=== PATIENT | female | born 1965 | race Caucasian/White ===

== ENCOUNTER 2017-11-26 11:30 | Emergency (ER) | payer MEDICAID ==
[2017-11-26] MEDS ORDERED: HYDROCODONE/APAP 5/325MG TABLET PO ONE (11:54)
--- NOTE | 2017-11-26 12:04 | Emergency Department Record ---
History of Present Illness - General Chief Complaint: Fall Injury Stated Complaint: FALL/KNEE PAIN Time Seen by Provider: 11/26/17 11:45 Source: Patient Mode of Arrival: Ambulatory Limitations: No limitations - History of Present Illness Initial Comments: The patient is here due to R knee pain. She slipped and fell on the R knee 2 days ago and now is having progressively increasing pain. The pain does radiate to the thigh and calf. She denies any other injury and is able to walk on it with a limp. Complaint: Fall Onset/Timin -: Days(s) When Fall Occurred: # Days [employer] Fall Witnessed: No Place Fall Occurred: Home Loss of Consciousness: None Prolonged Down Time?: Yes Symptoms Prior to Fall: None Severity scale (1-10): 4 Quality: Aching Context: Tripped/slipped Associated Symptoms: Denies - [place] Coma Scale Eye Response: (4) Open spontaneously Motor Response: (6) Obeys commands Verbal Response: (5) Oriented [place] Total: 15 - Related Data Home Medications Medication Instructions Recorded Confirmed Last Taken Furosemide [Lasix] 40 mg PO DAILY 11/26/17 11/26/17 Unknown Previous Rx's Medication Instructions Recorded Hydrocodone/Acetaminophen [[place] 1 - 2 each PO .EVERY 4-6 HRS PRN 11/26/17 5-325 Tablet] #20 tablet Allergies Allergy/AdvReac Type Severity Reaction Status Date / Time No Known Drug Allergies Allergy Unverified 08/12/17 09:58 Travel Screening - Travel/Exposure Within Last 30 Days Have you traveled within the last 30 days?: No Review of Systems Constitutional: Denies: Chills, Fever Eyes: Denies: Eye discharge ENT: Denies: Congestion Past Medical History - SOCIAL HISTORY Smoking Status: Current every day smoker Alcohol Use: None Drug Use: None - RESPIRATORY Hx Respiratory Disorders: Yes Hx Dyspnea: Yes (only with high humidity/heat) Hx Pneumonia: Yes (2 yrs ago) Hx Sleep Apnea: Yes Hx of CPAP: Yes - CARDIOVASCULAR Hx Cardio Disorders: Yes Hx Abnormal EKG: Yes (A fib) Hx CHF: Yes (start of it) Hx Edema: Yes (intermittent bilat) Hx Hypertension: Yes (meds good control) Hx Irregular Heartbeat: Yes Comment:: hyperlipidemia - NEURO Hx Neuro Disorders: Yes Hx Neuropathy: Yes (bottom of feet) Hx Weakness: Yes (all over) - GI Hx GI Disorders: No - Hx Genitourinary Disorders: Yes Comment:: 3 months "super heavy periods from xarelto"- said to stop xarelto. - ENDOCRINE Hx Endocrine Disorders: Yes Hx Diabetes: Yes (runs about 130) Hx Thyroid Disease: No (had sx) - MUSCULOSKELETAL Hx Musculoskeletal Disorders: No - PSYCH Hx Psych Problems: No - HEMATOLOGY/ONCOLOGY Hx Hematology/Oncology Disorders: Yes Comment:: no longer on xarelto per Dr Carri pérez Family Medical History Any Significant Family History?: Yes *Cancer Comment: uncle throat CA Hx Dementia: Mother Hx Depression: Mother Hx Diabetes: Father *Diabetes Comment: insulin Hx Heart Disease: Father, Brother/Sister *Heart Comment: a fib Hx HTN: Father Hx Stroke: Father Physical Exam - General General Appearance: Alert, Oriented x3, Cooperative, No acute distress - Head Head exam: Normal inspection - Eye Eye exam: Normal appearance, PERRL - ENT Ear exam: negative: External canal tenderness Nasal Exam: negative: Discharge, Sinus tenderness Throat exam: negative: Tonsillar erythema, Tonsillar exudate - Neck Neck exam: negative: Tenderness - Respiratory Respiratory exam: Normal lung sounds bilaterally. negative: Respiratory distress - Cardiovascular Cardiovascular Exam: Regular rate, Normal rhythm, Normal heart sounds - GI/Abdominal GI/Abdominal exam: Soft, Normal bowel sounds. negative: Tenderness - Extremities Extremities exam: Normal capillary refill, Tenderness (There is bruising, swelling, and tenderness to the anterior knee diffusely.). negative: Normal inspection, Full ROM - Neurological Neurological exam: Alert, Oriented X3. negative: Motor sensory deficit - Psychiatric Psychiatric exam: Normal affect, Normal mood - Skin Skin exam: Dry, Intact, Warm Course Vital Signs 11/26/17 11:46 Temperature 97.9 F Pulse Rate [ 69 Pulse Ox Probe] Respiratory 16 Rate Blood Pressure 135/90 [Left Arm] Pulse Ox 96 - Reevaluation(s) Reevaluation #1: I did discuss the xrays and plan with the patient. She is to use her home crutches and be off work for 3 days. She is to see her PCP next week for recheck if not better. 11/26/17 12:52 Medical Decision Making - Data Complexity MDM Data: X-Ray Ordered and/or Reviewed - Radiology Data Radiology results: Report reviewed (R knee: No acute traumatic changes.) Disposition Disposition: Discharge Clinical Impression: Contusion of knee Qualifiers: Encounter type: initial encounter Laterality: right Qualified Code(s): S80.01XA - Contusion of right knee, initial encounter Disposition: Home, Self-Care Condition: (2) Stable Instructions: Knee Pain (ED) Additional Instructions: The patient is to keep her zohra wrap on the R knee for 3-4 days. She is to use her home crutches and ice and elevate the knee. The patient is to take Sarver for pain and see her PCP next week if not better. Prescriptions: Hydrocodone/Acetaminophen [[place] 5-325 Tablet] 1 - 2 each PO .EVERY 4-6 HRS PRN #20 tablet PRN Reason: Pain Forms: Patient Portal Access Time of Disposition: 12:54 Quality - Quality Measures Quality Measures: N/A - Blood Pressure Screening View Details: Yes Does Patient Have Any of the Following: No Blood Pressure Classification: Hypertensive Reading Systolic Measurement: 135 Diastolic Measurement: 90 Screening for High Blood Pressure: < Pre-Hypertensive BP, F/U Documented > [ [id number]] Pre-Hypertensive Follow-up Interventions: Referral to alternative/primary care provider.
--- NOTE | 2017-11-27 08:50 | RADIOLOGY REPORT ---
EXAM: RIGHT KNEE HISTORY: PATIENT FELL ON RIGHT KNEE THREE DAYS AGO WITH PAIN. TECHNIQUE: Three views of the right knee were obtained. Comparison: None. Encounter: Initial. FINDINGS: There is relatively advanced degenerative arthritis at the patellofemoral articulation particularly involving the lateral compartment with degenerative arthritis also seen at both the medial and lateral compartments, more so medially. No definite acute fracture, dislocation, or joint effusion seen. There is some vascular calcification present. IMPRESSION: 1. DEGENERATIVE ARTHRITIS. 2. VASCULAR CALCIFICATION. 3. NO DEFINITE FRACTURE IDENTIFIED INVOLVING THE RIGHT KNEE. JOB NUMBER: [id number] MTDD
== END 2017-11-26 13:06 | disposition home or self-care (01) ==
LOC: ER 11:30
DX: S80.01XA Contusion of right knee, initial encounter (principal); W01.0XXA Fall on same level from slipping, tripping and stumbling without subsequent striking against object, initial encounter; Y92.009 Unspecified place in unspecified non-institutional (private) residence as the place of occurrence of the external cause; I10 Essential (primary) hypertension; F17.210 Nicotine dependence, cigarettes, uncomplicated
CPT/HCPCS: 99283

== ENCOUNTER 2019-08-18 13:21 | Observation (INO) | payer MEDICAID ==
--- NOTE | 2019-08-18 13:33 | Emergency Department Record ---
History of Present Illness - General Chief Complaint: Fall Injury Stated Complaint: FALL INJURY Time Seen by Provider: 08/18/19 13:22 Source: Patient Mode of Arrival: Ambulatory Limitations: No limitations - History of Present Illness Initial Comments: The patient is here due to falling down 8 steps at home onto a concrete landing. She had no LOC but did hit the front of her head on the cement. Presently the patient has a mild BUNCH and also L hand pain. She denies any neck pain, CP, SOB, back pain, hip pain or visual changes. The patient is on Coumadin due to Afib. Her Td is UTD. Complaint: Fall Onset/Timin -: Minutes(s) Fall From: Down stairs (#) (8) - Related Data Home Medications Medication Instructions Recorded Confirmed Last Taken Furosemide 40 mg PO DAILY 08/18/19 08/18/19 Unknown Allergies Allergy/AdvReac Type Severity Reaction Status Date / Time No Known Drug Allergies Allergy Unverified 03/30/19 08:01 Review of Systems Constitutional: Denies: Chills, Fever Eyes: Denies: Eye discharge ENT: Denies: Congestion Respiratory: Denies: Cough Endocrine: Denies: Fatigue Gastrointestinal: Denies: Nausea Genitourinary: Denies: Dysuria Musculoskeletal: Denies: Arthralgia Skin: Reports: Bruising Past Medical History - SOCIAL HISTORY Smoking Status: Current every day smoker Drug Use: None - RESPIRATORY Hx Respiratory Disorders: Yes Hx Dyspnea: Yes (only with high humidity/heat) Hx Pneumonia: Yes (2 yrs ago) Hx Sleep Apnea: Yes Hx of CPAP: Yes - CARDIOVASCULAR Hx Cardio Disorders: Yes Hx Abnormal EKG: Yes (A fib) Hx CHF: Yes (start of it) Hx Edema: Yes (intermittent bilat) Hx Hypertension: Yes (meds good control) Hx Irregular Heartbeat: Yes Comment:: hyperlipidemia - NEURO Hx Neuro Disorders: Yes Hx Neuropathy: Yes (bottom of feet) Hx Weakness: Yes (all over) - GI Hx GI Disorders: No - Hx Genitourinary Disorders: Yes Comment:: 3 months "super heavy periods from xarelto"- said to stop xarelto. - ENDOCRINE Hx Endocrine Disorders: Yes Hx Diabetes: Yes (runs about 130) Hx Thyroid Disease: No (had sx) - MUSCULOSKELETAL Hx Musculoskeletal Disorders: No - PSYCH Hx Psych Problems: No - HEMATOLOGY/ONCOLOGY Hx Hematology/Oncology Disorders: Yes Comment:: no longer on xarelto per Dr Carri pérez Family Medical History *Cancer Comment: uncle throat CA Hx Dementia: Mother Hx Depression: Mother Hx Diabetes: Father *Diabetes Comment: insulin Hx Heart Disease: Father, Brother/Sister *Heart Comment: a fib Hx HTN: Father Hx Stroke: Father Physical Exam - General General Appearance: Alert, Oriented x3, Cooperative, No acute distress - Head Head exam: Normocephalic. negative: Atraumatic, Normal inspection (There is a mild to mod contusion to the R frontal area.) Image of Face/Head: 1 - Area of tenderness and contusion. - Eye Eye exam: Normal appearance, PERRL - ENT Throat exam: Normal inspection. negative: Tonsillar erythema, Tonsillar exudate - Neck Neck exam: Normal inspection, Full ROM. negative: Tenderness (There is no posterior spine tenderness.) - Respiratory Respiratory exam: Normal lung sounds bilaterally. negative: Chest wall tenderness, Respiratory distress - Cardiovascular Cardiovascular Exam: Regular rate, Normal rhythm, Normal heart sounds - GI/Abdominal GI/Abdominal exam: Soft, Normal bowel sounds. negative: Tenderness - Extremities Extremities exam: Tenderness (There is L 5th finger tenderness.), Other (There is tenderness and abrasions to the dorsal L forearm.). negative: Normal insp ection - Back Back exam: Reports: Normal inspection. Denies: Vertebral tenderness - Neurological Neurological exam: Alert. negative: Motor sensory deficit Course - Reevaluation(s) Reevaluation #1: The patient is doing better at this time. She denies any significant head or neck pain. The L 5th finger PIP joint was very minimally subluxed and was easily reduced with minimal pressure. I did discuss the forehead hematoma and did recommend a short stay admission which she did agree to. 08/18/19 14:40 Reevaluation #2: The patient is doing very well at this time with mild head pain and no neck pain, confusion, nausea, or vomiting. I did discuss the case with the Trauma doctor at [facility] and she did recommend a short stay admission for a repeat head scan in 12-24 hours and also reverse the Coumadin down to near normal. Due to the patient being so stable I do believe she can stay here at [facility]. We will give her a 1000 unit dose of Kcentra and will admit her overnight to the hospital for repeat monitoring and repeat scanning. I did discuss the case with Ann (NUTRITION REPRESENTATIVE) and she does accept the admission. 08/18/19 15:04 Reevaluation #3: The patient is doing very well at this time. She denies any BUNCH, neck pain, CP, SOB, AP or back pain. She is ambulating normally and stable for admission. 08/18/19 15:09 Medical Decision Making - Data Complexity MDM Data: Labs Ordered and/or Reviewed, X-Ray Ordered and/or Reviewed, EKG Ordered and/or Reviewed - Lab Data Result diagrams: 08/18/19 13:30 08/18/19 13:30 - EKG Data -: EKG Interpreted by Me EKG: No Acute Changes - Radiology Data Radiology results: Report reviewed (Head CT: Neg for acute changes. Cervical Cpine CT: Neg for acute fx of dislocation. L forearm: Neg. L hand: ) Disposition Disposition: Admit Clinical Impression: Head injury due to trauma Qualifiers: Encounter type: initial encounter Qualified Code(s): S09.90XA - Unspecified injury of head, initial encounter Disposition: Still a Patient at [facility] Decision to Admit: Admit from ER Decision to Admit Date: 08/18/19 Decision to Admit Time: 15:10 Accepting Physician: Paulo Time Discussed w/Accepting Physician: 15:10 Condition: (2) Stable Forms: Patient Portal Access Time of Disposition: 15:10 Quality - Quality Measures Quality Measures: Blunt Head Trauma (>2yr) - Blunt Head Trauma - Adult Quality Measure: Measure #415: Utilization of CT for Minor Blunt Head Trauma ICD10 Codes Entered: Yes View Details: Yes Was CT ordered: Yes Does Patient Have Any of the Following: Taking Antiplatelet Med [place] Score: Please complete [place] Coma Scale above Utilization of CT for Minor Blunt Head Trauma: Patient Excluded [G9531] - Blood Pressure Screening View Details: Yes Does Patient Have Any of the Following: No Blood Pressure Classification: Normal BP Reading Systolic Measurement: 106 Diastolic Measurement: 68 Screening for High Blood Pressure: < Normal BP, F/U Not Required > [G8783]
[2019-08-18] MEDS ORDERED: ACETAMINOPHEN 1,000 MG/100 ML BTL IVPB ONE (13:34)
[2019-08-18 13:39] LABS: BASO % 0.4 % (0-6); EOS % 1.2 % (0-6); GRAN % 69.1 % (47-80); HEMATOCRIT 42.8 % (35.0-47.0); HEMOGLOBIN 13.7 gm/dl (11.6-16.0); LYMPH % 22.5 % (16-45); MEAN CELL VOLUME 89.5 fl (81-97); MEAN CORPUSCULAR HEMOGLOBIN 28.7 pg (27-33); MEAN PLATELET VOLUME 11.8 fl (7.4-10.4); MONO % 6.8 % (0-9); PLATELET COUNT 251 K/uL (130-400); RED BLOOD COUNT 4.78 M/uL (3.80-5.40); RED CELL DISTRIBUTION WIDTH 14.9 % (11.5-14.5); WHITE BLOOD COUNT W/O DIFF 9.1 K/uL (4.2-12.2)
[2019-08-18 13:51] LABS: INR 1.8; PROTHROMBIN TIME (PATIENT) 18.3 SECONDS (9.5-12.1)
[2019-08-18 13:52] LABS: BLOOD UREA NITROGEN 12 mg/dL (6-20); CREATININE 0.8 mg/dL (0.5-0.9); EST GLOMERULAR FILTRATION RATE > 60 mL/min
[2019-08-18 13:55] LABS: GLUCOSE,RANDOM 120 mg/dL (74-109)
[2019-08-18] MEDS ORDERED: KCENTRA (PCC) 1,000 UNIT KIT IV ONE (15:03)
[2019-08-18] MEDS ORDERED: PROTHROMBIN COMPLEX CONCENTRATE 1000 UNIT IV ONE (15:45)
[2019-08-18] MEDS ORDERED: HYDROCODONE/APAP 5/325MG TABLET PO PRN (15:56)
[2019-08-18] MEDS ORDERED: ACETAMINOPHEN 325 MG TAB PO PRN (15:56)
[2019-08-18] MEDS ORDERED: METFORMIN 500 MG TABLET PO SCH (17:30)
[2019-08-18] MEDS ORDERED: NICOTINE 21 MG/24 HOUR PATCH TD SCH (19:00)
[2019-08-18] MEDS ORDERED: LEVEMIR FLEXTOUCH 100 UNIT/ML INSULIN PEN SQ SCH (22:00)
[2019-08-18] MEDS ORDERED: SOTALOL HCL 80 MG TABLET PO SCH (22:00)
[2019-08-19 06:19] LABS: BASO % 0.2 % (0-6); EOS % 1.2 % (0-6); GRAN % 65.8 % (47-80); HEMATOCRIT 40.8 % (35.0-47.0); HEMOGLOBIN 13.1 gm/dl (11.6-16.0); LYMPH % 26.1 % (16-45); MEAN CELL VOLUME 89.7 fl (81-97); MEAN CORPUSCULAR HEMOGLOBIN 28.8 pg (27-33); MEAN CORPUSCULAR HGB CONC 32.1 g/dl (32-36); MEAN PLATELET VOLUME 11.6 fl (7.4-10.4); MONO % 6.7 % (0-9); PLATELET COUNT 230 K/uL (130-400); RED BLOOD COUNT 4.55 M/uL (3.80-5.40); RED CELL DISTRIBUTION WIDTH 14.9 % (11.5-14.5); WHITE BLOOD COUNT W/O DIFF 8.2 K/uL (4.2-12.2)
[2019-08-19 06:29] LABS: INR 1.7; PROTHROMBIN TIME (PATIENT) 17.5 SECONDS (9.5-12.1)
--- NOTE | 2019-08-19 06:49 | History & Physical ---
History of Present Illness - Date of Service Date of Service for History & Physical: 08/19/19 - History of Present Illness Admitting Diagnosis: 1. Acute Head Trauma on Coumadin History of Present Illness: Padmini Spears is a 53 y.o. F who presented to the [facility] ED on 08/18/19 after a fall down 8 steps and onto a concrete landing. Denied having any loss of LOC but did hit her head on the cement. Reported mild BUNCH and left hand pain in the ED. D/t Coumadin use for hx of Afib, pt admitted for OBV and for repeat head CT [address] KCentra was given in an attempt to reverse Coumadin during the post fall period. PMHx: HTN, high cholesterol, hypothyroidism, Afib, Obesity, DMII, smoker PCP: Elizabeth Medel NP ED Course -Vitals: T 98.3, HR 58, BP 106/68, RR 20, SpO2 98% on RA -Head CT: Negative for acute changes -Cervical CT: Negative for acute changes -Left hand xray: negative for fx, soft tissue swelling in 3rd and 4th MCP joint -Left forearm xray: negative for acute changes -CBC and CMP WNL, INR 1.8 -1000unit dose of Kcentra given -Left 5th finger PIP joint minimal subluxation, reduced by ER physician 08/19/19 0645 Vitals: T 98.4, HR 54, BP 122/80, RR 16, SpO2 94% on RA Pt sitting up at edge of bed. A&Ox3. Had 2nd head CT at 0400 and reported that she was ready to go as her boyfriend had her coffee and cigarettes waiting for her. Reported mild to moderate pain in the right side of her head and in her left hand. Denied neck pain, confusion, nausea or vomiting. Travel Screening - Travel/Exposure Within Last 30 Days Have you traveled within the last 30 days?: No - Travel/Exposure Within Last Year Have you traveled outside the [place] in the last year?: No - Additonal Travel Details Have you been exposed to anyone with a communicable illness?: No - Travel Symptoms Symptom Screening: None Review of Systems Reviewed: No additional complaints except as noted below Constitutional: Denies: Chills, Fever Eyes: Denies: Photophobia, Vision change Respiratory: Denies: Cough Cardiovascular: Denies: Chest pain, Dyspnea on exertion, Palpitations, Syncope Endocrine: Denies: Fatigue Gastrointestinal: Denies: Nausea, Vomiting Genitourinary: Denies: Dysuria Musculoskeletal: Denies: Arthralgia Skin: Reports: Bruising Neurological: Reports: Headache. Denies: Confusion, Numbness, Seizure, Tingling, Tremors, Weakness Hematological/Lymphatic: Reports: Easy bleeding (Coumadin use) Past Medical History - SOCIAL HISTORY Smoking Status: Current every day smoker Alcohol Use: None Drug Use: None - RESPIRATORY Hx Respiratory Disorders: Yes Hx Dyspnea: Yes (only with high humidity/heat) Hx Pneumonia: Yes (2 yrs ago) Hx Sleep Apnea: Yes Hx of CPAP: Yes - CARDIOVASCULAR Hx Cardio Disorders: Yes Hx Abnormal EKG: Yes (A fib) Hx CHF: Yes (start of it) Hx Edema: Yes (intermittent bilat) Hx Hypertension: Yes (meds good control) Hx Irregular Heartbeat: Yes Comment:: hyperlipidemia - NEURO Hx Neuro Disorders: Yes Hx Neuropathy: Yes (bottom of feet) Hx Weakness: Yes (all over) - GI Hx GI Disorders: No - Hx Genitourinary Disorders: Yes Comment:: 3 months "super heavy periods from xarelto"- said to stop xarelto. - ENDOCRINE Hx Endocrine Disorders: Yes Hx Diabetes: Yes (runs about 130) Hx Thyroid Disease: No (had sx) - MUSCULOSKELETAL Hx Musculoskeletal Disorders: Yes Hx Arthritis: Yes - PSYCH Hx Psych Problems: No - HEMATOLOGY/ONCOLOGY Hx Hematology/Oncology Disorders: Yes Comment:: no longer on xarelto per Dr Carri pérez Family Medical History Any Significant Family History?: Yes *Cancer Comment: uncle throat CA Hx Dementia: Mother Hx Depression: Mother Hx Diabetes: Father *Diabetes Comment: insulin Hx Heart Disease: Father, Brother/Sister *Heart Comment: a fib Hx HTN: Father Hx Stroke: Father H&P Meds/Allergies - Allergies Allergies: Allergies Allergy/AdvReac Type Severity Reaction Status Date / Time No Known Drug Allergies Allergy Unverified 03/30/19 08:01 - Home Medications Home Medications Medication Instructions Recorded Confirmed Last Taken Furosemide 40 mg PO DAILY 08/18/19 08/18/19 Unknown Previous Rx's Medication Instructions Recorded Acetaminophen [Tylenol 325Mg] 650 mg PO Q6H PRN tablet 08/19/19 Hydrocodone/APAP 5/325Mg [[place] 1 each PO Q6H PRN #5 tab 08/19/19 5Mg/325Mg] - Active Medications Active Medications: Current Medications Acetaminophen (Tylenol 325mg) 650 mg PO Q6H PRN PRN Reason: PAIN - MILD(1-4)/FEVER Hydrocodone Bitart/Acetaminophen ([place] 5mg/325mg) 1 each PO Q4H PRN PRN Reason: PAIN - MOD TO SEVERE (5-10) Last Admin: 08/19/19 02:52 Dose: 1 each Documented by: Atorvastatin Calcium (Lipitor) 20 mg PO DAILY [facility] Enalapril Maleate (Vasotec) 20 mg PO DAILY [facility] Furosemide (Lasix) 40 mg PO DAILY [facility] Insulin Detemir (Levemir Flextouch) 20 unit SQ BID [facility] Last Admin: 08/18/19 21:27 Dose: 20 unit Documented by: Metformin HCl (Glucophage Ir) 1,000 mg PO BIDWM [facility] Last Admin: 08/18/19 19:02 Dose: 1,000 mg Documented by: Nicotine (Nicotine 21mg) 1 patch TD Q24H [facility] Last Admin: 08/18/19 19:02 Dose: 1 patch Documented by: Sotalol HCl (Betapace) 80 mg PO BID [facility] Last Admin: 08/18/19 21:27 Dose: 80 mg Documented by: Verapamil HCl (Calan Sr) 240 mg PO DAILY [facility] Physical Exam - Vital Signs Vital Signs: Vital Signs - Last 24 Hrs Temp Pulse Pulse Resp BP BP Pulse Ox 08/19/19 02:50 98.4 F 54 L 16 133/79 98 08/18/19 21:30 98.1 F 56 L 18 126/79 96 08/18/19 16:36 55 L 20 08/18/19 16:12 54 L 20 120/70 97 08/18/19 16:00 98.5 F 55 L 16 122/79 93 L 08/18/19 13:29 98.3 F 58 L 20 106/68 98 - General General Appearance: Alert, Oriented x3, Cooperative, No acute distress Limitations: No limitations - Head Head exam: Normocephalic. negative: Atraumatic, Normal inspection Head exam detail: Contusion (right upper eye/forehead), Hematoma (right upper eye/forehead) - Eye Eye exam: Normal appearance, PERRL - ENT ENT exam: Normal exam Throat exam: Normal inspection. negative: Tonsillar erythema, Tonsillar exudate - Neck Neck exam: Normal inspection, Full ROM. negative: Tenderness (There is no posterior spine tenderness.) - Respiratory Respiratory exam: Normal lung sounds bilaterally. negative: Chest wall tenderness, Respiratory distress - Cardiovascular Cardiovascular Exam: Regular rate, Normal rhythm, Normal heart sounds - GI/Abdominal GI/Abdominal exam: Soft, Normal bowel sounds. negative: Tenderness - Extremities Extremities exam: Tenderness (There is L 5th finger tenderness.), Other (There is tenderness and abrasions to the dorsal L forearm.). negative: Normal inspection - Back Back exam: Reports: Normal inspection. Denies: Vertebral tenderness - Neurological Neurological exam: Alert, CN II-XII intact, Oriented X3. negative: Motor sensory deficit - Psychiatric Psychiatric exam: Normal affect, Normal mood - Skin Skin exam: Abrasion (left thigh d/t fall) Results - Labs Result Diagrams: 08/19/19 06:10 08/18/19 13:30 Labs Last 24 Hours: Laboratory Results - last 24 hr 08/18/19 08/18/19 08/18/19 13:30 13:30 13:30 WBC 9.1 RBC 4.78 Hgb 13.7 Hct 42.8 MCV 89.5 MCH 28.7 MCHC 32.0 RDW 14.9 H Plt Count 251 MPV 11.8 H Gran % 69.1 Lymphocytes % 22.5 Monocytes % 6.8 Eosinophils % 1.2 Basophils % 0.4 Absolute Neutrophils 6.30 PT 18.3 H INR 1.8 Sodium 138 Potassium 4.2 Chloride 99 Carbon Dioxide 26.0 Anion Gap 13.0 BUN 12 Creatinine 0.8 Estimated GFR > 60 Random Glucose 120 H Calcium 9.2 08/19/19 08/19/19 06:10 06:10 WBC 8.2 RBC 4.55 Hgb 13.1 Hct 40.8 MCV 89.7 MCH 28.8 MCHC 32.1 RDW 14.9 H Plt Count 230 MPV 11.6 H Gran % 65.8 Lymphocytes % 26.1 Monocytes % 6.7 Eosinophils % 1.2 Basophils % 0.2 Absolute Neutrophils 5.40 PT 17.5 H INR 1.7 Sodium Potassium Chloride Carbon Dioxide Anion Gap BUN Creatinine Estimated GFR Random Glucose Calcium - Imaging and Cardiology CT scan - head Status: Report reviewed VTE H&P Assessment - Risk for VTE Risk for VTE: Yes Risk Level: High Risk Assessment Date: 08/19/19 Risk Assessment Time: 06:45 VTE Orders Placed or Will Be Placed: No VTE Reason for No Prophylaxis: Contraindicated (usually on Coumadin, reversed with KCentra d/t fall) Plan - Detailed Diagnosis and Plan (1) Head injury due to trauma Status: Acute Qualifiers: Encounter type: initial encounter Qualified Code(s): S09.90XA - Unspecified injury of head, initial encounter Base Code: S09.90XA - UNSPECIFIED INJURY OF HEAD, INITIAL ENCOUNTER Comment: 08/19/19 -Fall down 8 steps, landing on concrete landing -Hit head, no LOC. -On Coumadin for Afib -Head CT at approximately 1500: No acute bleed -Reversed with KCentra in ED -Repeat Head CT at 0400: No acute bleed -Hgb/Hct stable (2) Full code status Status: Acute Base Code: Z78.9 - OTHER SPECIFIED HEALTH STATUS Comment: 08/19/19 -Full code this admission (3) DVT prophylaxis Status: Acute Base Code: Z29.9 - ENCOUNTER FOR PROPHYLACTIC MEASURES, UNSPECIFIED Comment: 08/19/19 -Last dose Coumadin on 08/17/19 -INR 1.8 on 08/17/19 -KCentra given to reverse Coumadin d/t fall -Holding Coumadin -Nursing to encourage ambulation
--- NOTE | 2019-08-19 06:54 | Discharge Summary ---
Providers Discharge Summary Date: 08/19/19 Date of admission: 08/18/19 15:45 Attending physician: DARYN DON Primary care physician: Elizabeth Medel N.P. Physical Exam - Vital Signs Vital Signs: Vital Signs - Last 24 Hrs Temp Pulse Pulse Resp BP BP Pulse Ox 08/19/19 02:50 98.4 F 54 L 16 133/79 98 08/18/19 21:30 98.1 F 56 L 18 126/79 96 08/18/19 16:36 55 L 20 08/18/19 16:12 54 L 20 120/70 97 08/18/19 16:00 98.5 F 55 L 16 122/79 93 L 08/18/19 13:29 98.3 F 58 L 20 106/68 98 - General General Appearance: Alert, Oriented x3, Cooperative, No acute distress Limitations: No limitations - Head Head exam: Normocephalic. negative: Atraumatic, Normal inspection (There is a mild to mod contusion to the R frontal area.) - Eye Eye exam: Normal appearance, PERRL - ENT Throat exam: Normal inspection. negative: Tonsillar erythema, Tonsillar exudate - Neck Neck exam: Normal inspection, Full ROM. negative: Tenderness (There is no posterior spine tenderness.) - Respiratory Respiratory exam: Normal lung sounds bilaterally. negative: Chest wall tenderness, Respiratory distress - Cardiovascular Cardiovascular Exam: Regular rate, Normal rhythm, Normal heart sounds - GI/Abdominal GI/Abdominal exam: Soft, Normal bowel sounds. negative: Tenderness - Extremities Extremities exam: Tenderness (There is L 5th finger tenderness.), Other (There is tenderness and abrasions to the dorsal L forearm.). negative: Normal inspection - Back Back exam: Reports: Normal inspection. Denies: Vertebral tenderness - Neurological Neurological exam: Alert. negative: Motor sensory deficit Hospitalization - Hospitalization Admission Diagnosis: 1. Acute Head Trauma on Coumadin - Problem List/Discharge Diagnosis (1) Head injury due to trauma Status: Acute Discharge Diagnosis: Encounter type: initial encounter Qualified Code(s): S09.90XA - Unspecified injury of head, initial encounter Base Code: S09.90XA - UNSPECIFIED INJURY OF HEAD, INITIAL ENCOUNTER Comment: 08/19/19 -Fall down 8 steps, landing on concrete landing -Hit head, no LOC. -On Coumadin for Afib -Head CT at approximately 1500: No acute bleed -Reversed with KCentra in ED -Repeat Head CT at 0400: No acute bleed -Hgb/Hct stable, INR 1.7 -Restart Coumadin tonight -Instructed to contact Dr. Falcon office (manages Coumadin) for further instruction on dose of Coumadin -Tylenol for mild-moderate pain -#5 [place] tablets given with instructions to split in half for severe pain. Pt unable to take Motrin d/t Coumadin use. (2) DVT prophylaxis Status: Acute Base Code: Z29.9 - ENCOUNTER FOR PROPHYLACTIC MEASURES, UNSPECIFIED Comment: 08/19/19 -Last dose Coumadin on 08/17/19 -INR 1.8 on 08/17/19 -KCentra given to reverse Coumadin d/t fall -Coumadin held while hospitalized -Nursing to encourage ambulation (3) Full code status Status: Acute Base Code: Z78.9 - OTHER SPECIFIED HEALTH STATUS Comment: 08/19/19 -Full code this admission - Hospitalization Course Disposition: Home, Self-Care Hospital Course: Padmini Spears is a 53 y.o. F who presented to the [facility] ED on 08/18/19 after a fall down 8 steps and onto a concrete landing. Denied having any loss of LOC but did hit her head on the cement. Reported mild BUNCH and left hand pain in the ED. D/t Coumadin use for hx of Afib, pt admitted for OBV and for repeat head CT [address] KCentra was given in an attempt to reverse Coumadin during the post fall period. PMHx: HTN, high cholesterol, hypothyroidism, Afib, Obesity, DMII, smoker PCP: Elizabeth Medel NP ED Course -Vitals: T 98.3, HR 58, BP 106/68, RR 20, SpO2 98% on RA -Head CT: Negative for acute changes -Cervical CT: Negative for acute changes -Left hand xray: negative for fx, soft tissue swelling in 3rd and 4th MCP joint -Left forearm xray: negative for acute changes -CBC and CMP WNL, INR 1.8 -1000unit dose of Kcentra given -Left 5th finger PIP joint minimal subluxation, reduced by ER physician 08/19/19 0645 Vitals: T 98.4, HR 54, BP 122/80, RR 16, SpO2 94% on RA Pt sitting up at edge of bed. A&Ox3. Had 2nd head CT at 0400 and reported that she was ready to go as her boyfriend had her coffee and cigarettes waiting for her. Reported mild to moderate pain in the right side of her head and in her left hand. Denied neck pain, confusion, nausea or vomiting. Reported that Dr. Falcon's office manages Coumadin. Procedures: Imaging and X-Rays 08/18/19 13:25 CERVICAL SPINE WO CONTRAST [CT] Stat HEAD WO CONTRAST [CT] Stat 08/18/19 13:26 HAND, LEFT 3 VIEWS [RAD] Stat 08/18/19 13:29 FOREARM, LEFT [RAD] Stat 08/19/19 04:00 HEAD WO CONTRAST [CT] Stat Cardiology Procedures 08/18/19 13:27 EKG NOW Abnormal Labs: Abnormal Lab Results 08/18/19 08/18/19 08/18/19 Range/Units 13:30 13:30 13:30 RDW 14.9 H (11.5-14.5) % MPV 11.8 H (7.4-10.4) fl PT 18.3 H (9.5-12.1) SECONDS Random Glucose 120 H (74-109) mg/dL 08/19/19 08/19/19 Range/Units 06:10 06:10 RDW 14.9 H (11.5-14.5) % MPV 11.6 H (7.4-10.4) fl PT 17.5 H (9.5-12.1) SECONDS Random Glucose (74-109) mg/dL Condition at Discharge: (2) Stable Discharge Medications - Discharge Medications Prescriptions: Hydrocodone/APAP 5/325Mg [[place] 5Mg/325Mg] 1 each PO Q6H PRN #5 tab PRN Reason: Pain - Mod To Severe (5-10) Home Medications: Ambulatory Orders Glucosamine/D3/Boswellia Priya [Osteo Bi-Flex Caplet] 1 each PO DAILY tab 11/12/16 [Last Taken Unknown] Warfarin Sodium 7.5 mg PO QD tab 01/08/17 [Last Taken Unknown] Sotalol HCl [Sotalol] 80 mg PO BID tab 03/30/19 [Last Taken Unknown] Furosemide 40 mg PO DAILY 08/18/19 [Last Taken Unknown] Acetaminophen [Tylenol 325Mg] 650 mg PO Q6H PRN tablet 08/19/19 [Last Taken Unknown] Hydrocodone/APAP 5/325Mg [[place] 5Mg/325Mg] 1 each PO Q6H PRN #5 tab 08/19/19 [Last Taken Unknown] Discharge Plan - Discharge Instructions Activity at Discharge: Increase Activity as Tolerated Diet at Discharge: Advance to Usual Diet Instructions: Concussion (DC) Additional Instructions: Activity: Increase Activity as Tolerated Diet: Advance to Usual Diet Consults: [] Follow Up: [] Dressing/Wound Care: (Type) (Change) Additional: [] Please contact Dr. Falcon's office regarding your Coumadin dosing for tonight as you were given a small dose of a reversal medication yesterday as you will need to resume this medication today. Your INR was 1.7 this morning Take 650mg of Tylenol every 4-6 hours as needed for minor to moderate pain Take 0.5 to 1 tablet of [place] every 6 hours NEEDED for severe pain Please note that 1 [place] tablet has 325mg of Acetaminophen and you should not exceed 3,000mg of Acetaminophen in a 24 hour period Follow up with Elizabeth Medel Quality Measures - Quality Measures Quality Measures: Documentation of Current Medications in Medical Record, Screening for High Blood Pressure and F/U Documented - Current Medications Quality Measure: Measure #130: Documentation of Current Medications Documentation of Current Medications: <Current Medications Documented/Reviewed> [G8427] - Blood Pressure Screening Quality Measure: Screening for High Blood Pressure and Follow-Up Documented Does Patient Have Any of the Following: Active Dx of HTN Blood Pressure Classification: Pre-Hypertensive BP Reading Systolic Measurement: 120 Diastolic Measurement: 70 Screening for High Blood Pressure: Patient Exclusion, Hx of HTN [G9744] - Elder Abuse Suspicion Index EASI Reference Information: Jameson RIVERA, Danielle C, Selam D, Phani M.Development and validation of a tool to assist physicians identification of elder abuse: The Elder Abuse Suspicion Index (EASI ). Journal of Elder Abuse and Neglect, 2008; 20 (3): 276-300.
--- NOTE | 2019-08-19 07:22 | CT SCAN REPORT ---
EXAM: CT OF THE BRAIN WITHOUT CONTRAST HISTORY: FALL WITH TRAUMA TO RIGHT FOREHEAD. TECHNIQUE: Routine noncontrast CT examination of the brain was obtained. Comparison: No prior imaging of the head available for comparison. Same day noncontrast CT of the spine. FINDINGS: The examination is mildly limited by increased image noise due to body habitus. The ventricles and subarachnoid spaces are normal in size. No suspicious area of abnormally increased or decreased attenuation is noted throughout the brain substance. No abnormal extraaxial fluid collection is seen. Benign dural calcification is noted to involve the anterior aspect of the falx cerebri and the posterior aspect of the tentorium. No acute skull fracture. There is soft tissue swelling in the right frontal/supraorbital scalp. The visualized paranasal sinuses and mastoid air cells are clear. The orbits to the extent visualized are unremarkable. IMPRESSION: 1. NO CONVINCING CT EVIDENCE OF AN ACUTE INTRACRANIAL ABNORMALITY NOR SKULL FRACTURE THOUGH EVALUATION IS SLIGHTLY LIMITED BY INCREASED IMAGE NOISE DUE TO BODY HABITUS. 2. RIGHT FRONTAL SCALP CONTUSION. JOB NUMBER: [id number] [facility]
--- NOTE | 2019-08-19 07:32 | CT SCAN REPORT ---
EXAM: CT OF THE CERVICAL SPINE WITHOUT CONTRAST HISTORY: FALL WITH TRAUMA TO RIGHT FOREHEAD. TECHNIQUE: Thin collimation helical CT examination of the cervical spine was performed without intravenous contrast. Coronal and sagittal reformatted images are generated and reviewed. Comparison: No prior imaging of the cervical spine available for comparison. Same day noncontrast CT of the head. FINDINGS: Evaluation of the mid to lower cervical spine is mildly limited by increased image noise due to body habitus. There is normal bone mineralization. There is mild reversal of the normal cervical lordosis centered at the C4 level. The vertebral bodies are otherwise normal in alignment and height. No definite acute fracture. No lytic or blastic bone lesion. No prevertebral soft tissue swelling. Multilevel degenerative disk and degenerative end plate changes are noted most pronounced at the C4-C5 through C6-C7 levels where the changes are moderate in degree. These likely combine with congenital canal narrowing to cause mild to moderate central canal stenosis. Minor multilevel bilateral facet arthropathy. No gross osseous neural foraminal narrowing. Moderate degenerative changes of the atlantodental joint. There is a well corticated ossific density noted adjacent to the tip of the spinous processes of C6 consistent with chronic soft tissue calcification or old ununited fracture. There is likely surgical absence of the right thyroid lobe. The left thyroid and isthmus appear prominent in size though no definite nodule is seen. There is mild atherosclerotic calcification in the region of the carotid bifurcations. No suspicious cervical mass nor adenopathy. IMPRESSION: 1. NO ACUTE FRACTURE, SUBLUXATION OR PREVERTEBRAL SOFT TISSUE SWELLING. DEGENERATIVE CHANGES, DETAILED ABOVE. 2. OLD UNITED FRACTURE FRAGMENT VERSUS CHRONIC SOFT TISSUE CALCIFICATION ADJACENT TO THE SPINOUS PROCESSES OF C6. JOB NUMBER: [id number] [facility]
--- NOTE | 2019-08-19 07:35 | RADIOLOGY REPORT ---
EXAM: LEFT FOREARM, TWO VIEWS HISTORY: PAIN IN DISTAL LEFT FOREARM WITH SKIN TEAR POST FALL DOWN STAIRS. TECHNIQUE: AP and lateral views of the left forearm were obtained. Comparison: Same day three views of the left hand. Encounter: Initial. FINDINGS: There is normal bone mineralization. No acute fracture, dislocation, or destructive bone lesion is seen. The articular relations are grossly maintained. There is possible mild soft tissue swelling dorsally and distally. IMPRESSION: NO ACUTE FRACTURE NOR DISLOCATION. NO FOREIGN BODY. J[facility]BER: [id number] [facility]
--- NOTE | 2019-08-19 07:39 | RADIOLOGY REPORT ---
EXAM: LEFT HAND, THREE VIEWS HISTORY: PAIN IN FOURTH AND FIFTH METACARPAL REGION POST FALL. TECHNIQUE: Three views of the left hand were obtained. Comparison: Same day two views of the left forearm. Encounter: Initial. FINDINGS: There is normal bone mineralization. No acute fracture, dislocation, or destructive bone lesion is seen. There are early arthritic changes of the lateral aspect of the radiocarpal joint. Early arthritic changes of the first through fourth MCP joints and several interphalangeal joints without periarticular erosion. Mild dorsal soft tissue swelling is demonstrated on the lateral view at the third-fourth MCP joint level. IMPRESSION: 1. NO CONVINCING ACUTE FRACTURE NOR DISLOCATION. DORSAL SOFT TISSUE SWELLING AT THE THIRD AND FOURTH MCP JOINT LEVEL. 2. MINOR ARTHRITIC CHANGES. J[facility]BER: [id number] [facility]
--- NOTE | 2019-08-19 09:53 | CT SCAN REPORT ---
EXAM: CT OF THE BRAIN WITHOUT CONTRAST HISTORY: FALL DOWN STAIRS HITTING HEAD. FOLLOW-UP. TECHNIQUE: Routine noncontrast CT of the brain was obtained. Comparison: CT of the brain without contrast dated 08/18/19 at 13:48. FINDINGS: The ventricles and subarachnoid spaces are stable in size. No new area of abnormally increased or decreased attenuation is noted throughout the brain substance. No new abnormal extraaxial fluid collection. Prominent falx cerebri calcification is again noted anteriorly and there is again noted calcification of the posterior tentorium right of midline. No acute skull fracture. Right frontal temporal soft tissue swelling appears somewhat more dispersed in the interval, but without gross interval enlargement. No evidence of acute sinusitis. The visualized mastoid air cells are clear. The orbits, to the extent visualized are intact. IMPRESSION: 1. NO CT EVIDENCE OF AN ACUTE INTRACRANIAL ABNORMALITY NOR SKULL FRACTURE. SPECIFICALLY, THERE IS NO EVIDENCE OF ACUTE HEMORRHAGE. 2. RIGHT FRONTAL TEMPORAL SOFT TISSUE SWELLING REDEMONSTRATED. JOB NUMBER: [id number] [facility]
[2019-08-19] MEDS ORDERED: ENALAPRIL 5 MG TABLET PO SCH (10:00)
[2019-08-19] MEDS ORDERED: FUROSEMIDE 40 MG TABLET PO SCH (10:00)
[2019-08-19] MEDS ORDERED: VERAPAMIL HCL 240 MG TAB ER PO SCH (10:00)
[2019-08-19] MEDS ORDERED: ATORVASTATIN 20 MG TABLET PO SCH (10:00)
== END 2019-08-19 07:40 | disposition home or self-care (01) ==
LOC: ER 13:21 → MEDSURG 15:45
PROVIDERS: ADMIT Internal Medicine; ATTEND Internal Medicine
DX: S00.93XA Contusion of unspecified part of head, initial encounter (principal); W10.8XXA Fall (on) (from) other stairs and steps, initial encounter; I48.91 Unspecified atrial fibrillation; Z79.01 Long term (current) use of anticoagulants; M79.642 Pain in left hand; I50.9 Heart failure, unspecified; R60.9 Edema, unspecified; E11.9 Type 2 diabetes mellitus without complications; G62.9 Polyneuropathy, unspecified; G47.33 Obstructive sleep apnea (adult) (pediatric); F17.210 Nicotine dependence, cigarettes, uncomplicated
CPT/HCPCS: 26770; 70450; 72125; 80048; 85025; 85610; 93005; 93010; 96365; 96366; 99220; 99285